=== PATIENT | female | born 1995 | race Caucasian/White ===

== ENCOUNTER 2023-06-13 10:32 | Emergency (ER) | payer MEDICAID ==
[~2023-06-13] VITALS: Ht 160 cm; Wt 63.5 kg
[2023-06-13 10:35] VITALS: BP 131/75; PULSE 100; RESP 18; TEMP 97.6; O2SAT 100
[2023-06-13] MEDS ORDERED: POLY17PD72 PO (14:00)
[2023-06-13] MEDS ORDERED: NAPR-1704 PO (14:00)
[2023-06-13] MEDS: KETOROLAC 30 MG/ML VIAL IM ONE (14:14)
== END 2023-06-13 14:22 | disposition home or self-care (01) ==
LOC: MED 10:32
DX: M46.1 Sacroiliitis, not elsewhere classified (principal); M62.830 Muscle spasm of back; Q65.89 Other specified congenital deformities of hip; Z79.899 Other long term (current) drug therapy
CPT/HCPCS: 72100; 81025; 96372; 99283; J1885